=== PATIENT | female | born 1980 | race Caucasian/White ===

== ENCOUNTER 2016-11-11 07:07 | Emergency (ER) | payer BC ==
[~2016-11-11 07:07] MED LIST: ANTIINFLAMMATORY; NORCO 5-325 TA1 EACH PO; OMEPRAZOLE; OMEPRAZOLE40 M2 PO; TRINESSA1 TAB PO; ZYRTEC
[2016-11-11 07:46] LABS: PREGNANCY-SERUM NEGATIVE (NEGATIVE)
[2016-11-11 07:48] LABS: CREATININE 0.77 mg/dl (0.50-1.10); eGFR VALUE FOR BLACK >90 mL/Min
[2016-11-11 08:55] LABS: URINE BILIRUBIN NEGATIVE (NEG); URINE BLOOD LARGE (NEG); URINE GLUCOSE (UA) NEGATIVE (NEG); URINE KETONE SMALL (NEG); URINE LEUKOCYTE ESTERASE POSITIVE (NEG); URINE NITRITE NEGATIVE (NEG); URINE PROTEIN MODERATE (NEG); URINE SPECIFIC GRAVITY 1.025 (1.003-1.030)
[2016-11-11 08:58] LABS: URINE APPEARANCE CLOUDY; URINE COLOR STRAW
[2016-11-11 09:32] LABS: URINE BACTERIA 3+; URINE RBC FULL FIELD /[HPF] (0-5)
[2016-11-11] MEDS ORDERED: ZOFRAN4 M2 PO (09:42)
[2016-11-11] MEDS ORDERED: PERCOCET 5-3251 EACH PO (09:42)
[2016-11-11] MEDS ORDERED: CIPRO500 M2 PO (09:42)
== END 2016-11-11 10:25 ==
LOC: EDMED 07:07
PROVIDERS: Emergency Medicine
DX: N20.1 Calculus of ureter (principal); Z87.442 Personal history of urinary calculi; Z87.891 Personal history of nicotine dependence
CPT/HCPCS: J1885; J2270; J2405; J7030